=== PATIENT | female | born 1975 | race Caucasian/White ===

== ENCOUNTER 2018-04-04 14:09 | Emergency (ER) | payer MEDICAID, OTHER ==
[2018-04-04 14:51] VITALS: BP 124/58
--- NOTE | 2018-04-04 15:21 | CR ---
Clinical history: 43-year-old female "smashed" left index finger in the carotid stool. Interpretation: Mild soft tissue swelling and early evidence underlying osteoarthritis (DIP joints this and adjacent middle finger). No foreign body. No sign of left second (index) finger fracture or dislocation. CONCLUSION: No fractures.
[2018-04-04] MEDS ORDERED: Lidocaine 1% 30 ML SDV INJECT ONE (17:14)
[2018-04-04] MEDS ORDERED: Bacitracin Oint 1 GM U/D Packet TOP ONE (17:14)
--- NOTE | 2018-04-04 17:49 | EDM.PDOC ---
Scribed by Debbie Leong 04/04/18 [id number] for Fredis Navarro MD ED HPI GENERAL MEDICAL PROBLEM - General Chief Complaint: Upper Extremity Injury/Pain Stated Complaint: WORKS COMP / DOOR SHUT ON LEFT INDEX FINGER Time Seen by Provider: 04/04/18 16:08 Source of Information: Reports: Patient, RN, RN Notes Reviewed History Limitations: Reports: No Limitations - History of Present Illness INITIAL COMMENTS - FREE TEXT/NARRATIVE: Cut left index finger at work today when it caught pinched in a client's garage door. Denies any other injury. Last tetanus vaccine was less than 5 yrs ago per pt. Onset: Today Location: Reports: Upper Extremity, Left Quality: Reports: Ache Severity: Mild Associated Symptoms: Reports: No Other Symptoms Left 2-Index finger Pain Score (Numeric/FACES): 7 - Related Data Allergies Allergy/AdvReac Type Severity Reaction Status Date / Time Latex, Natural Rubber Allergy Swelling Verified 04/04/18 14:53 Home Meds: Home Meds Levothyroxine 75 mcg PO ACBREAKFAST 07/19/14 [History] Sertraline [Zoloft] 50 mg PO DAILY 04/04/18 [History] Social & Family History - Tobacco Use Smoking Status *Q: Never Smoker Second Hand Smoke Exposure: No - Caffeine Use Caffeine Use: Reports: Coffee - Recreational Drug Use Recreational Drug Use: No - Living Situation & Occupation Occupation: Employed Review of Systems - Review of Systems Review Of Systems: ROS reveals no pertinent complaints other than HPI. ED EXAM, GENERAL - Physical Exam Exam: See Below Exam Limited By: No Limitations General Appearance: Alert, WD/WN, No Apparent Distress Head: Atraumatic, Normocephalic Extremities: Other (1.5cm linear lac. to depth of subcutaneous tissue at distal left 2nd finger pad, no FB, no active bleeding) Neurological: Alert, Oriented, CN II-XII Intact, Normal Cognition, Normal Gait, Normal Reflexes, No Motor/Sensory Deficits Psychiatric: Normal Affect, Normal Mood ED TRAUMA EXTREMITY PROCEDURES - Laceration/Wound Repair Left Distal Ventral Digit - 2nd (Index) Lac/Wound Length In cm: 1.5 Appearance: Subcutaneous, Linear, Clean Distal NVT: Neuro & Vascular Intact, No Tendon Injury Anesthetic Type: Local Local Anesthesia - Lidocaine (Xylocaine): 1% Plain Local Anesthetic Volume: 4cc Skin Prep: Chlorhexidine (Hibiciens), Saline, Sterile Drape Exploration/Debridement/Repair: Wound Explored, In a Bloodless Field, Explored to Base, Minimal Debridement, Minimally Undermined Closed With: Sutures Suture Size: 4-0 # of Sutures: 4 Suture Type: Nylon, Interrupted Tetanus Status Addressed: Yes Complications: No Course - Vital Signs Last Recorded V/S: Last Vital Signs Temp 37.0 C 04/04/18 14:50 Pulse 90 04/04/18 14:50 Resp 20 04/04/18 14:50 BP 124/58 L 04/04/18 14:50 Pulse Ox 97 04/04/18 14:50 - Orders/Labs/Meds Meds: Medications Discontinued Medications Generic Name Dose Route Start Last Admin Trade Name Al PRN Reason Stop Dose Admin Bacitracin 1 dose 04/04/18 17:14 04/04/18 17:27 Bacitracin Oint 1 Gm TOP 04/04/18 17:15 1 dose ONETIME ONE Administration Lidocaine HCl 30 ml 04/04/18 17:14 04/04/18 17:27 Xylocaine-Mpf 1% INJECT 04/04/18 17:15 30 ml ONETIME ONE Administration - Radiology Interpretation Free Text/Narrative:: Fingers left hand: No fractures. Mild soft tissue swelling and early evidence underlying osteoarthritis (DIP joints this and adjacent middle finger). See rad report. Departure - Departure Time of Disposition: 17:45 Disposition: Home, Self-Care 01 Condition: Good Clinical Impression: Work related injury Laceration of left index finger Qualifiers: Encounter type: initial encounter Damage to nail status: without damage Foreign body presence: without foreign body Qualified Code(s): S61.211A - Laceration without foreign body of left index finger without damage to nail, initial encounter - Discharge Information *PRESCRIPTION DRUG MONITORING PROGRAM REVIEWED*: Not Applicable *COPY OF PRESCRIPTION DRUG MONITORING REPORT IN PATIENT JESUS: Not Applicable Instructions: Laceration Care, Adult Forms: ED Department Discharge Additional Instructions: Follow up in clinic in 7 to 10 days for suture removal. I have read and agree with the documentation that has been completed regarding this visit. By signing this record, I attest that the documentation was completed in my physical presence and is an accurate record of the encounter.
== END 2018-04-04 18:00 | disposition home or self-care (01) ==
LOC: DL.ED 14:09
DX: S61.211A Laceration without foreign body of left index finger without damage to nail, initial encounter (principal); Y99.0 Civilian activity done for income or pay; W23.0XXA Caught, crushed, jammed, or pinched between moving objects, initial encounter; Z79.899 Other long term (current) drug therapy; Z91.040 Latex allergy status
CPT/HCPCS: 12001; 73140-F1; 99283

== ENCOUNTER 2019-07-18 09:12 | Emergency (ER) | payer BC, OTHER ==
[2019-07-18 09:26] VITALS: PULSE 84
[2019-07-18] MEDS ORDERED: Ondansetron 4 MG/2 ML SDV IVPUSH ONE (09:31)
--- NOTE | 2019-07-18 09:36 | EDM.PDOC ---
ED HPI GENERAL MEDICAL PROBLEM - General Chief Complaint: Gastrointestinal Problem Stated Complaint: stomach pain Time Seen by Provider: 07/18/19 09:25 Source of Information: Reports: Patient History Limitations: Reports: No Limitations - History of Present Illness INITIAL COMMENTS - FREE TEXT/NARRATIVE: This 44 yo female patient reports to the ED with upper abdominal pain since 0600 this morning. The patient repros most of her pain is in the right upper quadrant. The patient reports her current pain is a 9/10. The patient reports she attempted to drink some water (no change in pain) and had a normal bowel movement (no change in pain) prior to coming to the ED. The patient also attempted to be seen in [facility], but was sent to the ED due to pain. The patient reports she has had c-sections, her tubes tied and an ablation, but denies any additional abdominal surgeries. The patient reports she had guinean sausage, mac and cheese with corn for dinner last night. Onset: Today Onset Date: 07/18/19 Onset Time: 06:00 Duration: Constant Location: Reports: Abdomen Quality: Reports: Other Severity: Moderate Improves with: Reports: None Worsens with: Reports: None Context: Reports: Other Associated Symptoms: Reports: Nausea/Vomiting (Nausea no vomiting) Abdomen Pain Score (Numeric/FACES): 9 - Related Data Allergies Allergy/AdvReac Type Severity Reaction Status Date / Time Latex, Natural Rubber Allergy Swelling Verified 07/18/19 09:26 Home Meds: Home Meds Levothyroxine 75 mcg PO ACBREAKFAST 07/19/14 [History] Sertraline [Zoloft] 50 mg PO DAILY 04/04/18 [History] Fexofenadine HCl [Melissa Allergy] 60 mg PO ASDIRECTED 07/18/19 [History] Past Medical History HEENT History: Reports: None Cardiovascular History: Reports: None Respiratory History: Reports: Bronchitis, Recurrent Gastrointestinal History: Reports: None Genitourinary History: Reports: None [employer] History: Reports: Musculoskeletal History: Reports: Other (See Below) Other Musculoskeletal History: scoliosis Neurological History: Reports: None Psychiatric History: Reports: Other (See Below) Other Psychiatric History: premenstrual dysphoric disorder Endocrine/Metabolic History: Reports: Hypothyroidism Hematologic History: Reports: None Immunologic History: Reports: None Oncologic (Cancer) History: Reports: None Dermatologic History: Reports: None - Infectious Disease History Infectious Disease History: Reports: None - Past Surgical History Head Surgeries/Procedures: Reports: None HEENT Surgical History: Reports: None Cardiovascular Surgical History: Reports: None Respiratory Surgical History: Reports: None GI Surgical History: Reports: None Female Surgical History: Reports: Section, Endometrial Ablation, Tubal Ligation Endocrine Surgical History: Reports: None Neurological Surgical History: Reports: None Musculoskeletal Surgical History: Reports: None Dermatological Surgical History: Reports: None Social & Family History - Family History Family Medical History: Noncontributory - Caffeine Use Caffeine Use: Reports: Coffee - Living Situation & Occupation Occupation: Employed ED ROS GENERAL - Review of Systems Review Of Systems: Comprehensive ROS is negative, except as noted in HPI. ED EXAM, GI/ABD - Physical Exam Exam: See Below Exam Limited By: No Limitations General Appearance: Alert, WD/WN, No Apparent Distress Eyes: Bilateral: Normal Appearance, EOMI Ears: Normal External Exam, Normal Canal, Hearing Grossly Normal, Normal TMs Nose: Normal Inspection, Normal Mucosa, No Blood Throat/Mouth: Normal Inspection, Normal Lips, Normal Teeth, Normal Gums, Normal Oropharynx, Normal Voice, No Airway Compromise Head: Atraumatic, Normocephalic Neck: Normal Inspection, Supple, Non-Tender, Full Range of Motion Respiratory/Chest: No Respiratory Distress, Lungs Clear, Normal Breath Sounds, No Accessory Muscle Use, Chest Non-Tender Cardiovascular: Normal Peripheral Pulses, Regular Rate, Rhythm, No Edema, No Gallop, No JVD, No Murmur, No Rub GI/Abdominal Exam: Normal Bowel Sounds, No Organomegaly, No Distention, No Abnormal Bruit, No Mass, Pelvis Stable, Tender (RUQ) (Female) Exam: Deferred Rectal (Female) Exam: Deferred Back Exam: Normal Inspection, Full Range of Motion, NT Extremities: Normal Inspection, Normal Range of Motion, Non-Tender, Normal Capillary Refill, No Pedal Edema Neurological: Alert, Oriented, CN II-XII Intact, Normal Cognition, Normal Gait, Normal Reflexes, No Motor/Sensory Deficits Psychiatric: Normal Affect, Normal Mood Skin Exam: Warm, Dry, Intact, Normal Color, No Rash Lymphatic: No Adenopathy Course - Vital Signs Last Recorded V/S: Last Vital Signs Temp 36.5 C 07/18/19 09:22 Pulse 84 07/18/19 09:22 Resp 16 07/18/19 09:22 BP 128/45 L 07/18/19 09:22 Pulse Ox 98 07/18/19 09:22 - Orders/Labs/Meds Orders: Active Orders 24 hr Category Date Time Status CULTURE BLOOD [BC] Stat Lab 07/18/19 09:16 Ordered Labs: Laboratory Tests 07/18/19 07/18/19 07/18/19 Range/Units 09:23 09:23 09:23 WBC 8.9 (5.0-10.0) 10^3/uL RBC 4.74 (4.2-5.4) 10^6/uL Hgb 13.6 (12.0-16.0) g/dL Hct 41.3 (37.0-47.0) % MCV 87.1 (80-100) fL MCH 28.7 (27.0-34.0) pg MCHC 32.9 L (33.0-35.0) g/dL Plt Count 313 (150-450) 10^3/uL Neut % (Auto) 62.1 (42.2-75.2) % Lymph % (Auto) 24.4 (20.5-50.1) % [place] % (Auto) 11.2 H (2-8) % Eos % (Auto) 2.0 (1.0-3.0) % Baso % (Auto) 0.3 (0.0-1.0) % Sodium (136-145) mmol/L Potassium (3.5-5.1) mmol/L Chloride (98-107) mmol/L Carbon Dioxide (21-32) mmol/L Anion Gap (7-13) mEq/L BUN (7-18) mg/dL Creatinine (0.55-1.02) mg/dL Est Cr Clr Drug Dosing mL/min Estimated GFR (MDRD) BUN/Creatinine Ratio (No establ ref range) Glucose (74-99) mg/dL Lactic Acid 1.4 (0.4-2.0) mmol/L Calcium (8.5-10.1) mg/dL Magnesium 2.1 (1.8-2.4) mg/dL Total Bilirubin (0.2-1.0) mg/dL AST (15-37) U/L ALT (14-59) U/L Alkaline Phosphatase (46-116) U/L Total Protein (6.4-8.2) g/dL Albumin (3.4-5.0) g/dL Globulin Albumin/Globulin Ratio Amylase 41 (25-115) U/L Lipase 234 (73-393) U/L Urine Color (YELLOW) Urine Appearance (CLEAR) Urine pH (5.0-9.0) Ur Specific Wallace (1.005-1.030) Urine Protein (NEGATIVE) Urine Glucose (UA) (NEGATIVE) Urine Ketones (NEGATIVE) Urine Occult Blood (NEGATIVE) Urine Nitrite (NEGATIVE) Urine Bilirubin (NEGATIVE) Urine Urobilinogen (0.2-1.0) mg/dL Ur Leukocyte Esterase (NEGATIVE) Urine RBC /HPF Urine WBC (0-5/HPF) /HPF Ur Epithelial Cells (NOT SEEN) /HPF Amorphous Sediment (NOT SEEN) /HPF Urine Bacteria (0-FEW/HPF) /HPF Urine Mucus (NOT SEEN) /LPF Urine Opiates Screen (NEGATIVE) Ur Oxycodone Screen (NEGATIVE) Urine Methadone Screen (NEGATIVE) Ur Barbiturates Screen (NEGATIVE) U Tricyclic Antidepress (NEGATIVE) Ur Phencyclidine Scrn (NEGATIVE) Ur Amphetamine Screen (NEGATIVE) U Methamphetamines Scrn (NEGATIVE) Urine MDMA Screen (NEGATIVE) U Benzodiazepines Scrn (NEGATIVE) Urine Cocaine Screen (NEGATIVE) U Marijuana (THC) Screen (NEGATIVE) 07/18/19 07/18/19 07/18/19 Range/Units 09:23 09:27 09:27 WBC (5.0-10.0) 10^3/uL RBC (4.2-5.4) 10^6/uL Hgb (12.0-16.0) g/dL Hct (37.0-47.0) % MCV (80-100) fL MCH (27.0-34.0) pg MCHC (33.0-35.0) g/dL Plt Count (150-450) 10^3/uL Neut % (Auto) (42.2-75.2) % Lymph % (Auto) (20.5-50.1) % [place] % (Auto) (2-8) % Eos % (Auto) (1.0-3.0) % Baso % (Auto) (0.0-1.0) % Sodium 138 (136-145) mmol/L Potassium 4.0 (3.5-5.1) mmol/L Chloride 102 (98-107) mmol/L Carbon Dioxide 25 (21-32) mmol/L Anion Gap 15.0 H (7-13) mEq/L BUN 12 (7-18) mg/dL Creatinine 0.71 (0.55-1.02) mg/dL Est Cr Clr Drug Dosing 86.40 mL/min Estimated GFR (MDRD) > 60 BUN/Creatinine Ratio 16.9 (No establ ref range) Glucose 127 H (74-99) mg/dL Lactic Acid (0.4-2.0) mmol/L Calcium 8.9 (8.5-10.1) mg/dL Magnesium (1.8-2.4) mg/dL Total Bilirubin 0.3 (0.2-1.0) mg/dL AST 19 (15-37) U/L ALT 33 (14-59) U/L Alkaline Phosphatase 68 (46-116) U/L Total Protein 8.0 (6.4-8.2) g/dL Albumin 4.5 (3.4-5.0) g/dL Globulin 3.5 Albumin/Globulin Ratio 1.3 Amylase (25-115) U/L Lipase (73-393) U/L Urine Color Yellow (YELLOW) Urine Appearance Slightly cloudy (CLEAR) Urine pH 5.5 (5.0-9.0) Ur Specific Wallace >= 1.030 (1.005-1.030) Urine Protein Negative (NEGATIVE) Urine Glucose (UA) Negative (NEGATIVE) Urine Ketones Negative (NEGATIVE) Urine Occult Blood Trace-intact H (NEGATIVE) Urine Nitrite Negative (NEGATIVE) Urine Bilirubin Negative (NEGATIVE) Urine Urobilinogen 0.2 (0.2-1.0) mg/dL Ur Leukocyte Esterase Negative (NEGATIVE) Urine RBC 0-5 /HPF Urine WBC 0-5 (0-5/HPF) /HPF Ur Epithelial Cells Moderate H (NOT SEEN) /HPF Amorphous Sediment Moderate H (NOT SEEN) /HPF Urine Bacteria Few (0-FEW/HPF) /HPF Urine Mucus Few H (NOT SEEN) /LPF Urine Opiates Screen Negative (NEGATIVE) Ur Oxycodone Screen Negative (NEGATIVE) Urine Methadone Screen Negative (NEGATIVE) Ur Barbiturates Screen Negative (NEGATIVE) U Tricyclic Antidepress Negative (NEGATIVE) Ur Phencyclidine Scrn Negative (NEGATIVE) Ur Amphetamine Screen Negative (NEGATIVE) U Methamphetamines Scrn Negative (NEGATIVE) Urine MDMA Screen Negative (NEGATIVE) U Benzodiazepines Scrn Negative (NEGATIVE) Urine Cocaine Screen Negative (NEGATIVE) U Marijuana (THC) Screen Negative (NEGATIVE) Meds: Medications Discontinued Medications Generic Name Dose Route Start Last Admin Trade Name Freq PRN Reason Stop Dose Admin Hydromorphone HCl 0.5 mg 07/18/19 09:37 07/18/19 09:52 Dilaudid IVPUSH 07/18/19 09:38 0.5 mg ONETIME ONE Administration Hydromorphone HCl 0.5 mg 07/18/19 10:38 07/18/19 10:45 Dilaudid IVPUSH 07/18/19 10:39 0.5 mg ONETIME ONE Administration Hydromorphone HCl 0.5 mg 07/18/19 11:17 07/18/19 11:25 Dilaudid IVPUSH 07/18/19 11:18 0.5 mg ONETIME ONE Administration Sodium Chloride 1,000 mls @ 999 mls/hr 07/18/19 09:42 Normal Saline IV 07/18/19 10:42 .BOLUS ONE Iopamidol 100 ml 07/18/19 09:59 07/18/19 10:34 Isovue-300 (61%) IVPUSH 07/18/19 10:00 75 ml ONETIME ONE Administration Ketorolac Tromethamine 30 mg 07/18/19 09:42 Toradol IVPUSH 07/18/19 09:43 ONETIME ONE Metoclopramide HCl 10 mg 07/18/19 09:42 Reglan IVPUSH 07/18/19 09:43 ONETIME ONE Ondansetron HCl 4 mg 07/18/19 09:31 07/18/19 09:37 Zofran IVPUSH 07/18/19 09:32 4 mg ONETIME ONE Administration - Radiology Interpretation Free Text/Narrative:: PROCEDURE INFORMATION: Exam: CT Abdomen And Pelvis With Contrast Exam date and time: 07/18/2019 10:20 AM Age: 44 years old Clinical indication: Abdominal pain; Localized; Right upper quadrant (ruq) TECHNIQUE: Imaging protocol: Computed tomography of the abdomen and pelvis with intravenous contrast. Radiation optimization: All CT scans at this facility use at least one of these dose optimization techniques: automated exposure control; mA and/or kV adjustment per patient size (includes targeted exams where dose is matched to clinical indication); or iterative reconstruction. Contrast material: ISOVUE 300; Contrast volume: 75 ml; Contrast route: LAC; COMPARISON: No relevant prior studies available. 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 Liver: There is a fatty nonenlarged liver. Gallbladder and bile ducts: The common bile duct at the level the head of the pancreas is 8 mm which is minimally enlarged but there is no CT evidence of choledocholithiasis. There is a diverticula seen/suspected near the ampulla. Pancreas: Normal. No ductal dilation. Spleen: Normal. No splenomegaly. Adrenals: Normal. No mass. Kidneys and ureters: Normal. No hydronephrosis. Stomach and bowel: There is scattered colonic diverticula. Appendix: The appendix is unremarkable in is seen. Intraperitoneal space: Unremarkable. No free air. No significant fluid collection. Vasculature: Unremarkable. No abdominal aortic aneurysm. Lymph nodes: Unremarkable. No enlarged lymph nodes. Bladder: Unremarkable as visualized. Reproductive: Unremarkable as visualized. Bones/joints: There is scoliosis with mild arthritis. There is a pectus excavatum deformity incompletely visualized. Soft tissues: Unremarkable. IMPRESSION: 1. Mild extrahepatic biliary dilatation to the level of the head of the pancreas with possible duodenal diverticula. The pancreatic duct appears normal. There is no CT evidence of stones or cholecystitis. 2. Mildly fatty liver. 3. Paraesophageal hernia. Thank you for allowing us to participate in the care of your patient. Dictated and Authenticated by: Ryan Briggs MD 07/18/2019 11:13 AM Central Time ([place] & [place]) Departure - Departure Time of Disposition: 11:33 Disposition: DC/Tfer to Acute Hospital 02 Condition: Fair Clinical Impression: RUQ abdominal pain, Common bile duct dilatation - Discharge Information *PRESCRIPTION DRUG MONITORING PROGRAM REVIEWED*: Not Applicable *COPY OF PRESCRIPTION DRUG MONITORING REPORT IN PATIENT JESUS: Not Applicable Forms[facility] Plan Goals: Discussed the patient's history, examination, lab and CT results with Dr. Leahy (Hospitalist with [facility] in [place]). Dr. Leahy accepted the patient for continued evaluation and further management at [facility]. The patient will be transported by [facility]. Sepsis Event Note - Evaluation Sepsis Screening Result: No Definite Risk - Focused Exam Vital Signs: Vital Signs Temp Pulse Resp BP Pulse Ox 07/18/19 09:22 36.5 C 84 16 128/45 L 98 Date Exam was Performed: 07/18/19 Time Exam was Performed: 11:33 - My Orders Last 24 Hours: My Active Orders 07/18/19 09:16 CULTURE BLOOD [BC] Stat - Assessment/Plan Last 24 Hours: My Active Orders 07/18/19 09:16 CULTURE BLOOD [BC] Stat
[2019-07-18] MEDS ORDERED: HYDROmorphone 0.5 MG/0.5 ML Syringe IVPUSH ONE ×3 (09:37→11:17)
[2019-07-18] MEDS ORDERED: Sodium Chloride 0.9% 1,000 ML IV ONE (09:42)
[2019-07-18] MEDS ORDERED: Metoclopramide 10 MG/2 ML SDV IVPUSH ONE (09:42)
[2019-07-18] MEDS ORDERED: Ketorolac 30 MG/ML SDV IVPUSH ONE (09:42)
[2019-07-18 09:51] LABS: CHLORIDE,CL 102 mmol/L (98-107); SODIUM,NA 138 mmol/L (136-145)
[2019-07-18] MEDS ORDERED: Iopamidol 612 MG/ML 100 ML Bottle IVPUSH ONE (09:59)
[2019-07-18 11:53] VITALS: BP 103/58
== END 2019-07-18 11:53 ==
LOC: DL.ED 09:12
DX: K83.8 Other specified diseases of biliary tract (principal); E03.9 Hypothyroidism, unspecified; Z79.899 Other long term (current) drug therapy; Z91.040 Latex allergy status
CPT/HCPCS: 36415; 74177; 80053; 80305; 81001; 82150; 83605; 83690; 83735; 85025; 87040; 96374; 96375; 96376; 99285; J1170; J2405; Q9967

== ENCOUNTER 2019-10-27 20:13 | Emergency (ER) | payer BC ==
[2019-10-27 20:25] VITALS: BP 120/62; PULSE 97
[2019-10-27] MEDS ORDERED: Bacitracin Oint 1 GM U/D Packet TOP ONE (20:38)
[2019-10-27] MEDS ORDERED: Lidocaine 1% 30 ML SDV INJECT ONE (20:38)
--- NOTE | 2019-10-27 20:57 | CR ---
PROCEDURE INFORMATION: Exam: XR Left Finger(s) Exam date and time: 10/27/2019 8:39 PM Age: 44 years old Clinical indication: Injury or trauma; Injury history: Stuck with arrow; Initial encounter; Blunt trauma (contusions or hematomas; Left; Index finger; Injury date: 10/27/2019 TECHNIQUE: Imaging protocol: XR Left fingers. Views: Minimum 2 views. COMPARISON: CR Fingers Second Digit Lt F1 04/04/2018 3:10 PM FINDINGS: Bones/joints: Away from the proximal interphalangeal joint area there is no bony abnormality seen. Soft tissues: Soft tissue swelling/laceration identified in the lateral soft tissues of the 2nd finger at the level of the proximal interphalangeal joint. There is a faint linear opacity measuring 2-3 mm in length, sub mm short axis. In addition there is a small focal area of density measuring perhaps 2 mm which is more ovoid. These could reflect tiny soft tissue foreign bodies. These could reflect tiny chips of bone arising from the proximal aspect of the middle phalanx. There is soft tissue swelling in the midportion of the 2nd finger. IMPRESSION: 1. Soft tissue injury as described. 2. Soft tissue foreign bodies versus tiny bony fragments arising from the lateral aspect of the base of the middle phalanx of the 2nd finger
--- NOTE | 2019-10-27 21:22 | EDM.PDOC ---
ED HPI GENERAL MEDICAL PROBLEM - General Chief Complaint: Laceration Stated Complaint: laseration Time Seen by Provider: 10/27/19 20:25 Source of Information: Reports: Patient History Limitations: Reports: No Limitations - History of Present Illness INITIAL COMMENTS - FREE TEXT/NARRATIVE: ED with laceration to left index finger. States shooting bow and arrow and arrow lodged in finger and boyfriend pulled it out. Tetnus immunization current. 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: Dressing(s) Left Finger-Index Pain Score (Numeric/FACES): 8 - Related Data Allergies Allergy/AdvReac Type Severity Reaction Status Date / Time Latex, Natural Rubber Allergy Swelling Verified 10/27/19 20:33 Home Meds: Home Meds Levothyroxine 75 mcg PO ACBREAKFAST 07/19/14 [History] Fexofenadine HCl [Melissa Allergy] 60 mg PO ASDIRECTED 07/18/19 [History] PARoxetine [Paxil CR] 50 mg PO BEDTIME 10/27/19 [History] Past Medical History HEENT History: Reports: Allergic Rhinitis Cardiovascular History: Reports: None Respiratory History: Reports: Bronchitis, Recurrent Gastrointestinal History: Reports: Cholelithiasis Genitourinary History: Reports: None 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: Musculoskeletal History: Reports: Other (See Below) Other Musculoskeletal History: scoliosis Neurological History: Reports: None Psychiatric History: Reports: Other (See Below) Other Psychiatric History: premenstrual dysphoric disorder Endocrine/Metabolic History: Reports: Hypothyroidism Hematologic History: Reports: None Immunologic History: Reports: None Oncologic (Cancer) History: Reports: None Dermatologic History: Reports: None - Infectious Disease History Infectious Disease History: Reports: None - Past Surgical History Head Surgeries/Procedures: Reports: None HEENT Surgical History: Reports: None Cardiovascular Surgical History: Reports: None Respiratory Surgical History: Reports: None GI Surgical History: Reports: Cholecystectomy Female Surgical History: Reports: Section, Endometrial Ablation, Tubal Ligation Endocrine Surgical History: Reports: None Neurological Surgical History: Reports: None Musculoskeletal Surgical History: Reports: None Dermatological Surgical History: Reports: None Social & Family History - Family History Family Medical History: Noncontributory - Tobacco Use Smoking Status *Q: Unknown Ever Smoked Second Hand Smoke Exposure: No - Caffeine Use Caffeine Use: Reports: Coffee, Soda - Alcohol Use Days Per Week of Alcohol Use: 1 Number of Drinks Per Day: 6 Total Drinks Per Week: 6 - Recreational Drug Use Recreational Drug Use: No - Living Situation & Occupation Occupation: Employed ED ROS GENERAL - Review of Systems Review Of Systems: Comprehensive ROS is negative, except as noted in HPI. ED EXAM, SKIN/RASH Exam: See Below Exam Limited By: No Limitations General Appearance: Alert, Anxious, Mild Distress Eye Exam: Bilateral Eye: EOMI Ears: Normal External Exam, Hearing Grossly Normal Throat/Mouth: Normal Voice Cardiovascular: Normal Peripheral Pulses, Regular Rate, Rhythm Extremities: Normal Range of Motion Neurological: Alert, Oriented, Normal Cognition Psychiatric: Normal Mood Skin: Wound/Incision (1 cm laceration lateral MIP left index finger ) Location, Skin: Upper Extremity, Left ED SKIN PROCEDURES - Laceration/Wound Repair Left Middle Digit - 2nd (Index) Appearance: Superficial Distal NVT: Neuro & Vascular Intact Anesthetic Type: Local Local Anesthesia - Lidocaine (Xylocaine): 1% Plain Local Anesthetic Volume: 1cc Skin Prep: Chlorhexidine (Hibiciens), Saline Saline Irrigation (cc's): 30 Exploration/Debridement/Repair: Wound Explored Closed with: Sutures Lac/Wound length In cm: 1 Suture Size: 4-0 # of Sutures: 2 Suture Type: Nylon, Interrupted Drain Placement: No Sterile Dressing Applied: Nurse Tetanus Status Addressed: Yes Complications: No Course - Vital Signs Last Recorded V/S: Last Vital Signs Temp 97.7 F 10/27/19 20:24 Pulse 97 10/27/19 20:24 Resp 18 10/27/19 20:24 BP 120/62 10/27/19 20:24 Pulse Ox 98 10/27/19 20:24 - Orders/Labs/Meds Meds: Medications Discontinued Medications Generic Name Dose Route Start Last Admin Trade Name Al PRN Reason Stop Dose Admin Bacitracin 1 dose 10/27/19 20:38 10/27/19 20:48 Bacitracin Oint 1 Gm TOP 10/27/19 20:39 1 dose ONETIME ONE Administration Lidocaine HCl 30 ml 10/27/19 20:38 10/27/19 20:48 Xylocaine-Mpf 1% INJECT 10/27/19 20:39 30 ml ONETIME ONE Administration Departure - Departure Time of Disposition: 21:18 Disposition: Home, Self-Care 01 Condition: Good Clinical Impression: Finger laceration Qualifiers: Encounter type: initial encounter Finger: index finger Damage to nail status: without damage Foreign body presence: without foreign body Laterality: left Qualified Code(s): S61.211A - Laceration without foreign body of left index finger without damage to nail, initial encounter - Discharge Information *PRESCRIPTION DRUG MONITORING PROGRAM REVIEWED*: No *COPY OF PRESCRIPTION DRUG MONITORING REPORT IN PATIENT JESUS: No Instructions: Sutures, Ojse, or Adhesive Wound Closure, [id number] Forms: ED Department Discharge Additional Instructions: alternate tylenol and ibuprofen eery 4 hours as needed for discomfort elevate extremity keep dressing on tonight, may remove tomorrow, wash twice daily with soap and water cover with dressing during day splint for comfort follow up if any redness or swelling sutures out 10-14 days Sepsis Event Note (ED) - Evaluation Sepsis Screening Result: No Definite Risk - Focused Exam Vital Signs: Vital Signs Temp Pulse Resp BP Pulse Ox 10/27/19 20:24 97.7 F 97 18 120/62 98
== END 2019-10-27 21:24 | disposition home or self-care (01) ==
LOC: DL.ED 20:13
DX: S61.211A Laceration without foreign body of left index finger without damage to nail, initial encounter (principal); S61.213A Laceration without foreign body of left middle finger without damage to nail, initial encounter; E03.9 Hypothyroidism, unspecified; Z91.040 Latex allergy status; Z79.899 Other long term (current) drug therapy; Z98.890 Other specified postprocedural states; W26.8XXA Contact with other sharp object(s), not elsewhere classified, initial encounter
CPT/HCPCS: 12001; 73140-F1; 99283-25; J2001

== ENCOUNTER 2023-01-28 18:31 | Emergency (ER) | payer BC, MEDICAID, OTHER ==
[2023-01-28 19:35] VITALS: BP 161/81; PULSE 78
== END 2023-01-28 19:47 | disposition home or self-care (01) ==
LOC: DL.ED 18:31
DX: Z02.89 Encounter for other administrative examinations (principal); Z79.899 Other long term (current) drug therapy; Z91.040 Latex allergy status; Z86.16 Personal history of COVID-19; Z90.49 Acquired absence of other specified parts of digestive tract
CPT/HCPCS: 99283